=== PATIENT | female | born 1950 | race Caucasian/White ===

== ENCOUNTER 2022-11-20 12:02 | Outpatient (OUT) | payer MEDICARE, OTHER, SELFPAY ==
--- NOTE | 2022-11-20 12:42 | XR_ITS ---
The [place] [id number] Patient Name: Becca YANG MRN: [id number] date: 1950 Sex: F Assigned Patient Location: [facility] Current Patient Location: [facility] Accession/Order Number: [id number] Exam Date: 11/20/2022 12:35 Report Date: 11/20/2022 13:32 At the request of: JAMES LAW Procedure: XR hip LT 2V w/ pelvis PROCEDURE: XR hip LT 2V w/ pelvis HISTORY: R10.32 ; left groin pain since twisting injury 5 weeks ago COMPARISON: None. FINDINGS: BONES:Marked narrowing of the left hip joint space with near [id number] contact. Mild subchondral sclerosis and small subchondral cysts involving the roof the acetabulum. SOFT TISSUES:No visible soft tissue swelling. EFFUSION:None visible. OTHER: Degenerative changes of lower lumbar spine. IMPRESSION: 1. No appreciable acute abnormality. 2. Marked degenerative joint disease of left hip. Electronically authenticated by: HOME AMARAL Date: 11/20/2022 13:32
== END 2022-11-20 12:03 ==
LOC: RAD 12:03
PROVIDERS: PCP Family Medicine; Visit Provider Family Medicine
DX: R10.32 Left lower quadrant pain (principal); M16.12 Unilateral primary osteoarthritis, left hip
CPT/HCPCS: 73502

== ENCOUNTER 2022-12-12 12:45 | Emergency (ER) | payer MEDICARE, OTHER, SELFPAY ==
[2022-12-12 12:53] VITALS: BP 127/72; PULSE 91; RESP 18; TEMP 36.4; O2SAT 98; BMI 22.3
--- NOTE | 2022-12-12 13:27 | US_ITS ---
The [address] [address] Patient Name: Becca YANG MRN: [id number] date: 1950 Sex: F Assigned Patient Location: ED.MAIN Current Patient Location: ER Accession/Order Number: [id number] Exam Date: 12/12/2022 13:30 Report Date: 12/12/2022 14:26 At the request of: ROGER MCINTOSH Procedure: US venous doppler LE LT EXAMINATION: US venous doppler LE LT HISTORY: dvt ; left groin pain COMPARISON: No relevant comparison available. FINDINGS: REGION: Left lower extremity THROMBI: None. COMPRESSIBILITY: Normal compressibility. FLOW: Normal waveform and antegrade flow between 5 and 20 cm/s. OTHER: None. US/US venous doppler LE LT IMPRESSION: 1. No deep vein thrombus within the left lower extremity. Electronically authenticated by: HOME AMARAL Date: 12/12/2022 14:26
--- NOTE | 2022-12-12 13:31 | ED.EXTPRO1 ---
HPI - Extremity Problem General Chief complaint: Extremity Problem, Nontraumatic Stated complaint: PAIN IN/BEHIND L KNEE Time Seen by Provider: 12/12/22 12:50 Source: patient Mode of arrival: walk-in Limitations: no limitations History of Present Illness HPI Narrative: Patient is a 72-year-old female who presents to the emergency department for the evaluation of pain in the left groin radiating to the left knee. Patient states she twisted her leg several weeks ago. She saw her PCP earlier this week ordered x-rays and she was diagnosed with degenerative arthritic changes. She states she was given Percocet and a Medrol Dosepak. She is out of the pain medication, she has two days left of the Medrol Dosepak. She has an appointment with orthopedics on Friday but presents to the Emergency Room for pain control until that time. She denies any new injuries or traumas to the left hip or groin. She states she does believe that her left leg is swollen. No redness or drainage. Related Data Previous Rx's Medication Instructions Recorded methocarbamol 750 mg tablet 750 mg PO TID PRN pain #20 tabs 12/12/22 oxycodone-acetaminophen 5 mg-325 1 tab PO Q6H PRN pain #12 tabs 12/12/22 mg tablet (Percocet) Allergies Allergy/AdvReac Type Severity Reaction Status Date / Time acetaminophen [From Vicodin] Allergy Intermediate Verified 12/12/22 13:46 doxycycline Allergy Intermediate Verified 12/12/22 13:46 hydrocodone [From Vicodin] Allergy Intermediate Verified 12/12/22 13:46 Review of Systems ROS Constitutional Denies: fever or chills Ears, nose, mouth, and throat Denies: throat pain Cardiovascular Denies: chest pain Respiratory Denies: shortness of breath or cough Gastrointestinal Denies: abdominal pain, nausea or vomiting Musculoskeletal Reports: back pain; Denies: neck pain Integumentary/Breast Denies: rash Neurological Denies: headache, numbness in extremities or weakness in extremities Endocrine Denies: excessive urination Exam Narrative Exam Narrative: Gen.: Awake, alert, in no distress Head: Normocephalic, atraumatic ENT: Moist mucous membranes Respiratory: No respiratory distress Extremities: Moves extremities equally, varicose veins noted of the lower extremities, no appreciable swelling of the left leg compared to the right. No areas of wounds or cellulitis. Diffuse tenderness of the left groin, normal hip flexion and knee flexion of the left leg. 2+ DP pulses bilaterally. Psych: Normal mood and affect Neuro: No focal neuro deficit Skin: Warm, dry, intact Constitutional Vital Signs, click to edit/add: Last Vital Signs Temp 97.6 F 12/12/22 12:53 Pulse 91 H 12/12/22 12:53 Resp 18 12/12/22 12:53 BP 127/72 H 12/12/22 12:53 Pulse Ox 98 12/12/22 12:53 O2 Del Method Room Air 12/12/22 12:53 Course Vital Signs Vital signs: Vital Signs Temperature 97.6 F 12/12/22 12:53 Pulse Rate 91 H 12/12/22 12:53 Respiratory Rate 18 12/12/22 12:53 Blood Pressure 127/72 H 12/12/22 12:53 Pulse Oximetry 98 12/12/22 12:53 Oxygen Delivery Method Room Air 12/12/22 12:53 Temperature 97.6 F 12/12/22 12:53 Pulse Rate 91 H 12/12/22 12:53 Respiratory Rate 18 12/12/22 12:53 Blood Pressure 127/72 H 12/12/22 12:53 Pulse Oximetry 98 12/12/22 12:53 Oxygen Delivery Method Room Air 12/12/22 12:53 MDM - Extremity (Nontraumatic) MDM Narrative Medical decision making narrative: ultrasound with no evidence of deep vein thrombosis to the left lower extremity. Patient will be given a short course of analgesics and muscle relaxants until she sees orthopedics. She was made aware of the limitations of the emergency Department for refilling narcotic medications and she verbalizes understanding. Return to the Emergency Room flu symptoms change or worsen. Discharge Plan Discharge Chief Complaint: Extremity Problem, Nontraumatic Clinical Impression: Left groin pain Patient Disposition: Home, Self-Care Time of Disposition Decision: 14:35 Condition: Good Prescriptions / Home Meds: New oxycodone-acetaminophen [Percocet] 5-325 mg tablet 1 tab PO Q6H PRN (Reason: pain) Qty: 12 0RF Rx Instructions: DX: M25.552 methocarbamol 750 mg tablet 750 mg PO TID PRN (Reason: pain) Qty: 20 0RF Instructions: Groin Pain (ED) Stand Alone Forms: Portal Instructions Referrals: JAMES LAW DO [Primary Care Provider] - 1 week
[2022-12-12] MEDS: METHOCARBAMOL 500 MG TABLET 750 MG PO (13:46)
[2022-12-12 14:50] VITALS: BP 137/78; PULSE 78; RESP 16; O2SAT 97
== END 2022-12-12 14:51 | disposition home or self-care (01) ==
PROVIDERS: Emergency Provider Emergency Medicine; PCP Family Medicine
DX: R10.32 Left lower quadrant pain (principal)
CPT/HCPCS: 93971; 99283

== ENCOUNTER 2023-04-02 11:54 | Outpatient (OUT) | payer MEDICARE, OTHER, SELFPAY ==
[2023-04-02 12:24] LABS: Hemoglobin 10.8 g/dL (12.0-16.0); Mean Corpuscular HGB Conc 31.8 g/dL (29.9-35.2); Mean Corpuscular Hemoglobin 29.8 pg (26.7-34.0); Mean Corpuscular Volume 93.7 fL (81.0-99.0); Platelet Count 144 10^3/uL (150-450); Red Blood Count 3.63 10^6/uL (4.20-5.40); Red Cell Distribution Width 13.9 % (11.0-15.0); White Blood Count 4.2 10^3/uL (4.0-11.0)
[2023-04-02 13:05] LABS: Basophils Abs Manual 0.04 10^3/uL (0.00-0.10); Eosinophils Absolute Manual 0.21 10^3/uL (0.00-0.70); Lymphocytes Absolute Manual 2.94 10^3/uL (1.20-3.80); Monocytes Absolute Manual 0.37 10^3/uL (0.30-0.80); Segmented Neut Absolute Manual 0.63 10^3/uL (1.4-6.5)
[2023-04-02 13:23] LABS: Anion Gap 8.8; Aspartate Amino Transferase 25 U/L (15-37); BUN Creatinine Ratio 12.9; Bilirubin Total 0.8 mg/dL (0.2-1.0); Calcium 9.3 mg/dL (8.5-10.1); Carbon Dioxide 30.6 mmol/L (21.0-32.0); Chloride 99 mmol/L (98-107); Estimated GFR (African America >60 (>=60); Estimated GFR (Non-African Ame 54 (>=60); Glucose 74 mg/dL (74-106); Potassium 3.4 mmol/L (3.5-5.1); Sodium 135 mmol/L (136-145)
[2023-04-02 13:24] LABS: Alanine Aminotransferase 20 U/L (14-59); Albumin Globulin Ratio 1.1; Alkaline Phosphatase 67 U/L (46-116); Chol HDL Ratio 2.9; Cholesterol 176 mg/dL (<=200); Free T3 2.51 pg/mL (2.18-3.98); Globulin 3.6 g/dL; HDL Cholesterol 60 mg/dL (40-60); Thyroid Stimulating Hormone 4.212 uIU/mL (0.358-3.740); Total Protein 7.6 g/dL (6.4-8.2); Triglycerides 106 mg/dL (<=150); VLDL CHOLESTEROL 21.2 mg/dL
[2023-04-02 15:57] LABS: Free T4 0.98 ng/dL (0.76-1.46)
== END 2023-04-02 11:55 | disposition home or self-care (01) ==
LOC: LAB 11:56
PROVIDERS: PCP Family Medicine; Visit Provider Family Medicine
DX: E78.00 Pure hypercholesterolemia, unspecified (principal); E03.9 Hypothyroidism, unspecified; R53.82 Chronic fatigue, unspecified; E55.9 Vitamin D deficiency, unspecified
CPT/HCPCS: 36415; 80053; 80061; 82306; 82607; 82746; 84439; 84443; 84481; 85027

== ENCOUNTER 2023-04-11 12:56 | Outpatient (RCR) | payer MEDICARE, OTHER, SELFPAY | END 2023-04-23 11:45 | disposition home or self-care (01) | LOC: PT 12:56 | PROVIDERS: PCP Family Medicine; Visit Provider Family Medicine | DX: M16.12 Unilateral primary osteoarthritis, left hip (principal); Z96.652 Presence of left artificial knee joint | CPT/HCPCS: 97110; 97161 ==

== ENCOUNTER 2023-06-23 14:24 | Outpatient (OUT) | payer MEDICARE, OTHER, SELFPAY ==
--- OUTSIDE RECORDS SUMMARY | 2023-06-23 14:26 | XMS_ITS | CCD ---
Author Name Unknown Address [facility] [address] [place] [address] Organization [facility] Care Team Providers Care University Lecturer Name Role Phone DR SAMUEL LAW Admitting Unavailable THANH, DR SAMUEL Hernandez Attending Unavailable ROBERTH, DR RIZVI Primary Care Unavailable [place], DR Witt Consulting Unavailable THANH, DR SAMUEL Hernandez Consulting Unavailable MD Telly Monsalve Attending Provider DO Samuel Law Primary Care Provider [phone] Samuel Law Primary Care Unavailable Telly Monsalve Attending Unavailable Telly Monsalve Admitting Unavailable Problems Problem Classification Problem Date Documented Date Episodic/Chronic Other non-epithelial cancer of skin (1 source) 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, including hip; Translations: [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, including hip] Onset: 09-16-2022 Episodic Unclassified (1 source) Other complications of procedures, not elsewhere classified, initial encounter; Translations: [Other complications of procedures, not elsewhere classified, initial encounter] Onset: 09-16-2022 Results Test Name Value Interpretation Reference Range Facil ity MG MAMM SCREEN 3D LULA CADon 05-30-2022 MG MAMM SCREEN 3D LULA CAD Patient: Becca YANG Exam Date: 05/30/2022 : 1950 Gender:F Ordering : DR SAMUEL LAW D.OZaki Admission #: [id number] Family : Order #: [id number] CLICK HERE TO VIEW EXAM RADIOLOGY REPORT PROCEDURE: MAMMOGRAM SCREENING 3D BILATERAL CAD COMPARISON: MG MAMM LULA SCRN W CAD DIG, 04/05/2014. MG MAMM SCREEN LULA W CAD, 03/18/2019. INDICATIONS: Screening mammography Calculator Name NCI Breast Cancer Risk Assessment Tool 5 Year Breast Cancer Risk 2.40% Lifetime Breast Cancer Risk 5.90% Personal Breast Cancer No Personal Ovarian Cancer No Treatments None Family Cancers None LOCATION: [facility] BREAST COMPOSITION: Extremely dense, which lowers the sensitivity of mammography. FINDINGS: DIAGNOSTIC CATEGORY 1--NEGATIVE. NO CHANGE FROM COMPARISON ASSESSMENT. Scattered benign-appearing calcifications are present. RIGHT BREAST: No significant suspicious finding. LEFT BREAST: No significant suspicious finding. RECOMMENDATIONS: ROUTINE MAMMOGRAM AND CLINICAL EVALUATION IN 12 MONTHS. PLEASE NOTE: A NORMAL MAMMOGRAM DOES NOT EXCLUDE THE POSSIBILITY OF BREAST CANCER. A CLINICALLY SUSPICIOUS PALPABLE LUMP SHOULD BE BIOPSIED. Dictated by: Eduar Alcantar MD on 05/30/2022 at 15:48 Approved by: Eduar Alcantar MD on 05/30/2022 at 15:51 Normal [facility] Vital Signs Date Time Vital Sign Value Performing Clinician Pepito vidal 08-23-2022 14:10-0400 Body temperature 98.4 [degF] DO Samuel Law Work Phone: [facility] 08-23-2022 14:10-0400 Diastolic blood pressure 66 mm[Hg] DO Samuel Law Work Phone: [facility] 08-23-2022 14:10-0400 Heart rate 85 /min DO Samuel Law Work Phone: [facility] 08-23-2022 14:10-0400 Respiratory rate 18 /min DO Samuel Law Work Phone: [facility] 08-23-2022 14:10-0400 SaO2% (BldA) [Mass fraction] 96 % DO Samuel Law Work Phone: [facility] 08-23-2022 14:10-0400 Systolic blood pressure 118 mm[Hg] DO Samuel Law Work Phone: [facility] Encounters Encounter Date Encounter Type Care Provider Facility Start: 09-16-2022 End: 09-16-2022 ambulatory Samuel A Law Facility:[facility] Start: 09-16-2022 End: 09-16-2022 ambulatory DO Samuel A Law Work Phone: [facility] Work Phone: Start: 09-16-2022 End: 09-16-2022 Discharged Recurring DO Samuel Law Work Phone: [facility] Work Phone: Start: 05-30-2022 End: 05-31-[address] SAMUEL LAW Facility: Payers Date Payer Category Payer Self-pay 2022 Unknown [id number] 1960 Medicare [id number] 1960 Unknown [id number] 1950 Unknown [id number] Unknown [id number] Social History Date Type Detail Facility Tobacco smoking stat [facility] Unknown if ever smoked [facility] Work Phone: Start: 1950 Sex Assigned At Female F [facility] Evaluation note Note Date & Type Note Facility Evaluation note No assessment information availa ble [facility] Work Phone: Summary Purpose Family History No Family History Records FoundNo Family History Records Found Advance Directives No Advanced Directives Records FoundNo Advanced Directives Records Found Chief Complaint and Reason for Visit Chief Complaint S91.301 Additional Source Comments INFORMATION SOURCE (unrecogn ized section and content) DATE CREATED AUTHOR 05/31/2022 [facility] DATE CREATED AUTHOR AUTHOR'S ORGANIZ ATION 10/08/2022 [facility] Care Teams (unrecognized sec tion and content) Team Status: Active Member Role Status Dates Samuel Law DO Primary Care Provider Active Team Status: Inactive Member Role Status Dates Telly Monsalve MD Attending Provider Active Samuel Law DO Primary Care Provider Active Goals (unrecognized section and content) Goals may be documented in a n alternate section FOR RECORDS PERTAINING TO PATIENTS WHO ARE OR HAVE BEEN ENROLLED IN A CHEMICAL DEPENDENCY/SUBSTANCEABUSE PROGRAM, SOME INFORMATION MAY BE OMITTED. This clinical summary was aggregated from multiple sources. Caution should be exercised in using it in the provision of clinical care. This summary normalizes information from multiple sources, and as a consequence, information in this document may materially change the coding, format and clinical context of patient data. In addition, data may be omitted in some cases. CLINICAL DECISIONS SHOULD BE BASED ON THE PRIMARY CLINICAL RECORDS. The [facility]. provides no warranty or guarantee of the accuracy or completeness of information in this document.
--- NOTE | 2023-06-23 14:28 | MR_ITS ---
[address] [address] Patient Name: Becca YANG MRN: [id number] date: 1950 Sex: F Assigned Patient Location: MAMMO Current Patient Location: MRI Accession/Order Number: [id number] Exam Date: 06/23/2023 14:55 Report Date: 06/23/2023 22:58 At the request of: JAMES LAW Procedure: MR lumbar spine wo con EXAMINATION: MR lumbar spine wo con HISTORY: Low Back PAin M54.50 left leg pain, weakness. COMPARISON: None. TECHNIQUE: Multiplanar, multisequence MRI images of the lumbar spine without contrast. FINDINGS: There is grade 1 anterolisthesis at L5-S1 measuring 3 mm. Remaining vertebral bodies are anatomically aligned. Chronic compression at L1 and L5. Scattered moderate disc space narrowing. Conus medullaris terminates at L1. No abnormal signal in the distal spinal cord and conus. L5-S1: Broad-based disc protrusion. Severe bilateral facet arthropathy, ligamentum flavum flavum hypertrophy, and small synovial cyst extending into the bilateral neural foramen. Mild spinal canal and bilateral lateral recess stenosis. Mild right and moderate to severe left foraminal stenosis. L4-L5: Broad-based disc protrusion, moderate facet arthropathy and ligamentum flavum hypertrophy. Prominent bilateral foraminal osteophytes. Mild spinal canal and bilateral lateral recess stenosis. Moderate right and moderate to severe left foraminal stenosis. L3-L4: Disc bulge, moderate facet arthropathy and ligamentum flavum hypertrophy. No significant central spinal canal stenosis. Mild to moderate right foraminal stenosis. L2-L3: Disc bulge, moderate facet arthropathy and ligamentum flavum flavum hypertrophy. Mild central spinal canal stenosis. Asymmetric severe right foraminal stenosis. L1-L2: Disc bulge, moderate facet arthropathy, ligamentum flavum hypertrophy. Mild to moderate spinal canal stenosis. Mild bilateral foraminal stenosis. T12-L1: Disc bulge. No significant spinal canal or significant neural foraminal stenosis. MR/MR lumbar spine wo con IMPRESSION: 1. Moderate multilevel degenerative disc disease and facet joint arthropathy in the lumbar spine. There is degenerative grade 1 anterolisthesis at L5-S1 secondary to facet arthropathy. 2. There is mild to moderate chronic compression deformity of the L1 and L5 vertebral bodies. No acute compression fractures. 3. There are no levels of high-grade central spinal canal stenosis in the lumbar spine. Degenerative changes result in multiple levels of significant foraminal stenosis as described. Electronically authenticated by: BOGDAN STEIN Date: 06/23/2023 22:58
--- NOTE | 2023-06-23 14:28 | XR_ITS ---
The [address] [address] Patient Name: Becca YANG MRN: [id number] date: 1950 Sex: F Assigned Patient Location: MRI Current Patient Location: MRI Accession/Order Number: [id number] Exam Date: 06/23/2023 14:52 Report Date: 06/23/2023 15:28 At the request of: JAMES LAW Procedure: XR hip LT min 2V PROCEDURE: XR hip LT min 2V COMPARISON: 11/20/2022 HISTORY: Left Hip Pain M25.552, Sciatica M54.32 FINDINGS: BONES:Interval left total hip arthroplasty in anatomic alignment. No acute fracture, dislocation or mechanical failure. SOFT TISSUES:Negative. No visible soft tissue swelling. EFFUSION:None visible. OTHER: Negative. XR/XR hip LT min 2V IMPRESSION: No acute radiographic abnormality Electronically authenticated by: CARINA BARRAZA Date: 06/23/2023 15:28
== END 2023-06-23 14:25 | disposition home or self-care (01) ==
LOC: MRI 14:24
PROVIDERS: PCP Family Medicine; Visit Provider Family Medicine
DX: M54.32 Sciatica, left side (principal); M25.552 Pain in left hip; M54.50 Low back pain, unspecified; M51.36 Other intervertebral disc degeneration, lumbar region
CPT/HCPCS: 72148; 73502

== ENCOUNTER 2023-06-30 10:49 | Outpatient (OUT) | payer MEDICARE, OTHER, SELFPAY ==
--- OUTSIDE RECORDS SUMMARY | 2023-06-30 10:51 | XMS_ITS | CCD ---
Author Name Unknown Address [id number] [address] [place] [address] Organization [facility] Care Team Providers Care Linen Room Custodian Name Role Phone DR SAMUEL LAW Admitting Unavailable THANH, DR SAMUEL Hernandez Attending Unavailable ROBERTH, DR RIZVI Primary Care Unavailable [place], DR Witt Consulting Unavailable THANH, DR SAMUEL Hernandez Consulting Unavailable MD Telly Monsalve Attending Provider DO Samuel Law Primary Care Provider Samuel Law Primary Care Unavailable Telly Monsalve [...] : DR SAMUEL LAW D.OZaki Admission #: [id number] Family : Order #: [id number] CLICK HERE TO VIEW EXAM RADIOLOGY REPORT [...] Treatments None Family Cancers None LOCATION: [facility] BREAST COMPOSITION: Extremely dense, which lowers [...] MD on 05/30/2022 at 15:51 Normal [facility] Vital Signs Date Time Vital Sign Value Performing Clinician Pepito vidal 08-23-2022 14:10-0400 Body temperature 98.4 [degF] DO Samuel Law Work Phone: [facility] 08-23-2022 14:10-0400 Diastolic blood pressure 66 mm[Hg] DO Samuel Law Work Phone: [facility] 08-23-2022 14:10-0400 Heart rate 85 /min DO Samuel Law Work Phone: [facility] 08-23-2022 14:10-0400 Respiratory rate 18 /min DO Samuel Law Work Phone: [facility] 08-23-2022 14:10-0400 SaO2% (BldA) [Mass fraction] 96 % DO Samuel Law Work Phone: [facility] 08-23-2022 14:10-0400 Systolic blood pressure 118 mm[Hg] DO Samuel Law Work Phone: [facility] Encounters Encounter Date Encounter Type Care Provider Facility Start: 09-16-2022 End: 09-16-2022 ambulatory Samuel A Law Facility:[facility] Start: 09-16-2022 End: 09-16-2022 ambulatory DO Samuel A Law Work Phone: [facility] Work Phone: Start: 09-16-2022 End: 09-16-2022 Discharged Recurring DO Samuel Law Work Phone: [facility] Work Phone: Start: 05-30-2022 End: 05-31-[address] SAMUEL LAW Facility: Payers Date Payer Category Payer Self-pay 2022 Unknown [id number] 1960 Medicare [id number] 1960 Unknown [id number] 1950 Unknown [id number] Unknown [id number] Social History Date Type Detail Facility Tobacco smoking stat [facility] Unknown if ever smoked [facility] Work Phone: Start: 1950 Sex Assigned At Female F [facility] Evaluation note Note Date & Type Note Facility Evaluation note No assessment information availa ble [facility] Work Phone: Summary Purpose Family History No Family History Records FoundNo Family History Records Found Advance Directives No Advanced Directives Records FoundNo Advanced Directives Records Found Chief Complaint and Reason for Visit Chief Complaint S91.301 Additional Source Comments INFORMATION SOURCE (unrecogn ized section and content) DATE CREATED AUTHOR 05/31/2022 [facility] DATE CREATED AUTHOR AUTHOR'S ORGANIZ ATION 10/08/2022 [facility] Care Teams (unrecognized sec tion and [...] BE BASED ON THE PRIMARY CLINICAL RECORDS. [facility]. provides no warranty or guarantee of the accuracy or completeness of information in this document.
--- NOTE | 2023-06-30 10:54 | MM_ITS ---
Patient Name: Becca YANG MR#: [id number] : 1950 Exam Date: 06/30/2023 Ordering Doctor: DR JAMES LAW D.O. RADIOLOGY REPORT PROCEDURE: MM TOMOSYNTHESIS SCREENING BI COMPARISON: MG MAMM SCREEN LULA W CAD, 03/18/2019. MG MAMM SCREEN 3D LULA CAD, 05/30/2022. INDICATIONS: screening Calculator Name NCI Breast Cancer Risk Assessment Tool 5 Year Breast Cancer Risk 2.40% Lifetime Breast Cancer Risk 5.60% Personal Breast Cancer No Personal Ovarian Cancer No Treatments None Family Cancers None LOCATION: [facility] BREAST COMPOSITION: Extremely dense, which lowers the sensitivity of mammography. FINDINGS: DIAGNOSTIC CATEGORY 1--NEGATIVE. NO CHANGE FROM COMPARISON ASSESSMENT. Scattered benign-appearing calcifications are present. RIGHT BREAST: No significant suspicious finding. LEFT BREAST: No significant suspicious finding. RECOMMENDATIONS: ROUTINE MAMMOGRAM AND CLINICAL EVALUATION IN 12 MONTHS. PLEASE NOTE: A NORMAL MAMMOGRAM DOES NOT EXCLUDE THE POSSIBILITY OF BREAST CANCER. A CLINICALLY SUSPICIOUS PALPABLE LUMP SHOULD BE BIOPSIED. Dictated by: Eduar Alcantar MD on 06/30/2023 at 12:59 Approved by: Eduar Alcantar MD on 06/30/2023 at 13:00
== END 2023-06-30 10:50 | disposition home or self-care (01) ==
LOC: MAMMO 10:49
PROVIDERS: PCP Family Medicine; Visit Provider Family Medicine
DX: Z12.31 Encounter for screening mammogram for malignant neoplasm of breast (principal)
CPT/HCPCS: 77063; 77067

== ENCOUNTER 2023-07-04 10:56 | Outpatient (OUT) | payer MEDICARE, OTHER, SELFPAY ==
--- NOTE | 2023-07-04 10:58 | XR_ITS ---
The [address] [address] Patient Name: Becca YANG MRN: [id number] date: 1950 Sex: F Assigned Patient Location: [facility] Current Patient Location: [facility] Accession/Order Number: [id number] Exam Date: 07/04/2023 11:12 Report Date: 07/04/2023 11:50 At the request of: JAMES LAW Procedure: XR DEXA axial skeleton EXAMINATION: XR DEXA axial skeleton HISTORY: asymptomatic menopausal state COMPARISON: No relevant comparison available. TECHNIQUE: Dual-energy X-ray absorptiometry (DXA) was performed. FINDINGS: SPINE ANALYSIS: Average bone mineral density is 1.150 g/cm2. T-score (standard deviation relative to young adult mean): -0.2 . HIP ANALYSIS: Lowest bone mineral density is within the right femoral neck, 0.876 g/cm2. T-score (standard deviation relative to young adult mean): -1.2 . XR/XR DEXA axial skeleton IMPRESSION: World [employer] Organization Classification: Osteopenia - Moderate Fracture Risk Electronically authenticated by: HOME AMARAL Date: 07/04/2023 11:50
== END 2023-07-04 10:57 | disposition home or self-care (01) ==
LOC: RAD 10:56
PROVIDERS: PCP Family Medicine; Visit Provider Family Medicine
DX: M85.80 Other specified disorders of bone density and structure, unspecified site (principal); Z78.0 Asymptomatic menopausal state
CPT/HCPCS: 77080

== ENCOUNTER 2023-07-21 10:46 | Outpatient (OUT) | payer MEDICARE, OTHER, SELFPAY ==
--- OUTSIDE RECORDS SUMMARY | 2023-07-21 10:53 | XMS_ITS | CCD ---
Author Name Unknown Address [facility] [address] [place] [address] Organization [facility] Care Team Providers Care Will Call Order Clerk Name Role Phone DR SAMUEL LAW Admitting Unavailable THANH, DR SAMUEL Hernandez Attending Unavailable ROBERTH, DR RIZVI Primary Care Unavailable Knox, DR Witt Consulting Unavailable THANH, DR SAMUEL [...] : DR SAMUEL LAW D.OZaki Admission #: [id number] Family : Order #: [id number] CLICK HERE TO VIEW EXAM RADIOLOGY REPORT [...] Treatments None Family Cancers None LOCATION: [facility] BREAST COMPOSITION: Extremely dense, which lowers the [...] MD on 05/30/2022 at 15:51 Normal [facility] Vital Signs Date Time Vital Sign Value Performing Clinician Pepito vidal 08-23-2022 14:10-0400 Body temperature 98.4 [degF] DO Samuel Law Work Phone: [facility] 08-23-2022 14:10-0400 Diastolic blood pressure 66 mm[Hg] DO Samuel Law Work Phone: [facility] 08-23-2022 14:10-0400 Heart rate 85 /min DO Samuel Law Work Phone: [facility] 08-23-2022 14:10-0400 Respiratory rate 18 /min DO Samuel Law Work Phone: [facility] 08-23-2022 14:10-0400 SaO2% (BldA) [Mass fraction] 96 % DO Samuel Law Work Phone: [facility] 08-23-2022 14:10-0400 Systolic blood pressure 118 mm[Hg] DO Samuel Law Work Phone: [facility] Encounters Encounter Date Encounter Type Care Provider Facility Start: 09-16-2022 End: 09-16-2022 ambulatory Samuel A Law Facility:[facility] Start: 09-16-2022 End: 09-16-2022 ambulatory DO Samuel A Law Work Phone: [facility] Work Phone: Start: 09-16-2022 End: 09-16-2022 Discharged Recurring DO Samuel Law Work Phone: [facility] Work Phone: Start: 05-30-2022 End: 05-31-[address] SAMUEL LAW Facility: Payers Date Payer Category Payer Self-pay 2022 Unknown [id number] 1960 Medicare [id number] 1960 Unknown [id number] 1950 Unknown [id number] Unknown [id number] Social History Date Type Detail Facility Tobacco smoking stat [facility] Unknown if ever smoked [facility] Work Phone: Start: 1950 Sex Assigned At Female F [facility] Evaluation note Note Date & Type Note Facility Evaluation note No assessment information availa ble [facility] Work Phone: Summary Purpose Family History No Family History Records FoundNo Family History Records Found Advance Directives No Advanced Directives Records FoundNo Advanced Directives Records Found Chief Complaint and Reason for Visit Chief Complaint S91.301 Additional Source Comments INFORMATION SOURCE (unrecogn ized section and content) DATE CREATED AUTHOR 05/31/2022 [facility] DATE CREATED AUTHOR AUTHOR'S ORGANIZ ATION 10/08/2022 [facility] Care Teams (unrecognized sec tion and [...] BE BASED ON THE PRIMARY CLINICAL RECORDS. [facility] [facility]. provides no warranty or guarantee of the accuracy or completeness of information in this document.
--- NOTE | 2023-07-21 12:18 | P.CN_ITS ---
Consult Note: HPI Data of Consult Patient: new to practice Consult date: 07/21/23 Requesting Physician: Terry Jordan MD Primary Care Provider: JAMES LAW DO Consult Narrative Reason for consult: left hip pain, low back pain Narrative: 73yof who presents for evaluation. history of left hip replacement. has recently been started on gabapentin and tramadol, which helps alleviate pain. lumbar mri reviewed, which is significant for severe degenerative changes and facet arthropathy in lower lumbar spine. also moderate stenosis at multiple levels. continues to stay active and engage in provider directed home exercises. cc:: CC: Terry Jordan MD Review of Systems ROS Status of ROS 10 or more systems reviewed and unremark able except as noted in history and below Meds Home Medications and Allergies Home Medications Medication Instructions Recorded Confirmed Type methocarbamol 750 mg tablet 750 mg PO TID PRN pain #20 tabs 12/12/22 Rx oxycodone-acetaminophen 5 mg-325 1 tab PO Q6H PRN pain #12 tabs 12/12/22 Rx mg tablet (Percocet) Allergies Allergy/AdvReac Type Severity Reaction Status Date / Time acetaminophen [From Vicodin] Allergy Intermediate Verified 12/12/22 13:46 doxycycline Allergy Intermediate Verified 12/12/22 13:46 hydrocodone [From Vicodin] Allergy Intermediate Verified 12/12/22 13:46 Exam Narrative Exam Narrative: Psych-alert and oriented x 3. Attentive and appropriate, constitutionally normal, displays normal mood and affect per situation.? There are no obvious deficits in memory, reasoning, or intellect.? Skin-no obvious rashes, bruising, erythema noted to the patient's area of pain. Extremities- extremities are warm with minimal edema and palpable pulses. Lumbar-no significant tenderness to palpation noted in the lumbar spine and paraspinal musculature.? Pain is elicited with extension, and lateral rotation of the lumbar spine. Range of motion is slightly diminished with these motions due to pain. Facet loading maneuvers are positive bilaterally and do appear to be concordant with the patient's normal complaints of pain.? Coordination remains intact.? Gait remains non-antalgic. Assessment and Plan Assessment and Plan (1) Lumbar stenosis with neurogenic claudication: (2) Lumbar spondylosis: Plan 73yof who presents for evaluation. failed conservative measures, as noted. imaging reviewed, as noted. discussed that her current regimen of pain medication was appropriate, would continue this as long as effective. also discussed that given the severity of her changes in the lumbar spine, may at some point require interventional modalities for further benefit. she expressed understanding. follow up as needed.
== END 2023-07-21 10:47 | disposition home or self-care (01) ==
LOC: PM 10:48
PROVIDERS: PCP Family Medicine; Visit Provider Anesthesiology
DX: M48.062 Spinal stenosis, lumbar region with neurogenic claudication (principal); M47.816 Spondylosis without myelopathy or radiculopathy, lumbar region
CPT/HCPCS: G0463

== ENCOUNTER 2023-12-02 08:17 | Outpatient (OUT) | payer MEDICARE, OTHER, SELFPAY ==
--- OUTSIDE RECORDS SUMMARY | 2023-12-02 08:27 | XMS_ITS | CCD ---
Author Organization [facility] Care Team Providers Care Paste Up Worker Name Role Phone DR SAMUEL LAW Admitting Unavailable LAW, DR SAMUEL Hernandez Attending Unavailable VALONE, DR RIZVI Primary Care Unavailable [place], DR Witt Consulting Unavailable THANH, DR SAMUEL Hernandez Consulting Unavailable MD Telly Monsalve Attending Provider [phone] DO Samuel Law Primary Care Provider Samuel [...] 1950 Gender:F Ordering : DR SAMUEL LAW DZakiOZaki Admission #: [id number] Family : Order #: [id number] CLICK HERE TO VIEW EXAM RADIOLOGY REPORT [...] No Treatments None Family Cancers None LOCATION: BREAST COMPOSITION: Extremely dense, which lowers the [...] Alcantar MD on 05/30/2022 at 15:51 Normal Vital Signs Date Time Vital Sign Value Performing Clinician Opheliai young 08-23-2022 14:10-0400 Body temperature 98.4 [degF] DO Samuel Law Work Phone: [facility] 08-23-2022 14:10-0400 Diastolic blood pressure 66 mm[Hg] DO Samuel Law Work Phone: [facility] 08-23-2022 14:10-0400 Heart rate 85 /min DO Samuel Law Work Phone: [facility] 08-23-2022 14:10-0400 Respiratory rate 18 /min DO Samuel Law Work Phone: [facility] 08-23-2022 14:10-0400 SaO2% (BldA) [Mass fraction] 96 % DO Samuel Law Work Phone: [facility] 08-23-2022 14:10-0400 Systolic blood pressure 118 mm[Hg] DO Samuel Law Work Phone: [facility] Encounters Encounter Date Encounter Type Care Provider Facility Start: 09-16-2022 End: 09-16-2022 ambulatory Samuel A Law Facility:[facility] Start: 09-16-2022 End: 09-16-2022 ambulatory DO Samuel A Law Work Phone: [facility] Work Phone: Start: 09-16-2022 End: 09-16-2022 Discharged Recurring DO Samuel Law Work Phone: [facility] Work Phone: Start: 05-30-2022 End: 05-31-2022 ambulatory SAMUEL LAW Facility: Payers Date Payer Category Payer Self-pay 2022 Unknown [id number] 1960 Medicare [id number] 1960 Unknown [id number] 1950 Unknown [id number] [id number] Unknown [id number] 2.16.8 [id number] Social History Date Type Detail Facility Tobacco smoking stat [facility] Unknown if ever smoked [facility] Work Phone: Start: 1950 Sex Assigned At Female F [facility] Evaluation note Note Date & Type Note Facility Evaluation note No assessment information availa ble [facility] Work Phone: Summary Purpose Family History No Family History Records FoundNo Family History Records Found Advance Directives No Advanced Directives Records FoundNo Advanced Directives Records Found Chief Complaint and Reason for Visit Chief Complaint S91.301 Additional Source Comments INFORMATION SOURCE (unrecogn ized section and content) DATE CREATED AUTHOR 05/31/2022 [facility] DATE CREATED AUTHOR AUTHOR'S ORGANIZ ATION 10/08/2022 [facility] Care Teams (unrecognized sec tion and content) [...] BE BASED ON THE PRIMARY CLINICAL RECORDS. [facility] [employer] [facility]. provides no warranty or guarantee of the accuracy or completeness of information in this document.
[2023-12-02 08:56] LABS: Hematocrit 35.7 % (36.0-48.0); Hemoglobin 11.8 g/dL (12.0-16.0); Mean Corpuscular HGB Conc 33.1 g/dL (29.9-35.2); Mean Corpuscular Hemoglobin 29.8 pg (26.7-34.0); Mean Corpuscular Volume 90.2 fL (81.0-99.0); Mean Platelet Volume 12.7 fL (9.5-13.5); Platelet Count 105 10^3/uL (150-450); Red Blood Count 3.96 10^6/uL (4.20-5.40); Red Cell Distribution Width 12.8 % (11.0-15.0); White Blood Count 3.9 10^3/uL (4.0-11.0)
[2023-12-02 09:33] LABS: Alanine Aminotransferase 20 U/L (14-59); Albumin Globulin Ratio 1.4; Albumin Level 4.3 g/dL (3.4-5.0); Alkaline Phosphatase 41 U/L (46-116); Anion Gap 14.7; Aspartate Amino Transferase 24 U/L (15-37); BUN Creatinine Ratio 12.7; Bilirubin Total 0.9 mg/dL (0.2-1.0); Carbon Dioxide 28.2 mmol/L (21.0-32.0); Chloride 104 mmol/L (98-107); Chol HDL Ratio 2.8; Cholesterol 180 mg/dL (<=200); Estimated GFR (African America >60 (>=60); Estimated GFR (Non-African Ame 53 (>=60); Free T3 2.15 pg/mL (2.18-3.98); Globulin 3.1 g/dL; Glucose 82 mg/dL (74-106); HDL Cholesterol 64 mg/dL (40-60); Potassium 3.9 mmol/L (3.5-5.1); Sodium 143 mmol/L (136-145); Thyroid Stimulating Hormone 3.423 uIU/mL (0.358-3.740); Total Protein 7.4 g/dL (6.4-8.2); Triglycerides 97 mg/dL (<=150); VLDL CHOLESTEROL 19.4 mg/dL
[2023-12-02 09:50] LABS: Free T4 0.91 ng/dL (0.76-1.46)
[2023-12-02 10:06] LABS: Segmented Neut Absolute Manual 1.05 10^3/uL (1.4-6.5)
[2023-12-02 10:07] LABS: Basophils Abs Manual 0.11 10^3/uL (0.00-0.10); Eosinophils Absolute Manual 0.03 10^3/uL (0.00-0.70); Lymphocytes Absolute Manual 2.26 10^3/uL (1.20-3.80); Monocytes Absolute Manual 0.42 10^3/uL (0.30-0.80)
== END 2023-12-02 08:18 | disposition home or self-care (01) ==
LOC: LAB 08:23
PROVIDERS: PCP Family Medicine; Visit Provider Family Medicine
DX: E78.00 Pure hypercholesterolemia, unspecified (principal); E03.9 Hypothyroidism, unspecified; E55.9 Vitamin D deficiency, unspecified
CPT/HCPCS: 36415; 80053; 80061; 82306; 84439; 84443; 84481; 85007; 85027

== ENCOUNTER 2024-01-14 12:04 | Outpatient (OUT) | payer MEDICARE, OTHER, SELFPAY ==
[2024-01-14 13:23] LABS: Anion Gap 11.2; BUN Creatinine Ratio 15.3; Calcium 9.2 mg/dL (8.5-10.1); Carbon Dioxide 29.8 mmol/L (21.0-32.0); Chloride 103 mmol/L (98-107); Estimated GFR (African America >60 (>=60); Estimated GFR (Non-African Ame 55 (>=60); Glucose 89 mg/dL (74-106); Sodium 140 mmol/L (136-145)
[2024-01-14 14:06] LABS: Basophils Absolute Auto 0.1 10^3/uL (0.0-0.1); Basophils Percent Auto 1.1 % (0.2-2.0); Eosinophils Percent Auto 0.7 % (0.9-7.0); Hematocrit 35.7 % (36.0-48.0); Immature Granulocytes Abs Auto 0.01 10^3/uL (0.00-0.03); Immature Granulocytes Pct Auto 0.2 % (0.0-0.5); Lymphocytes Absolute Auto 2.4 10^3/uL (1.2-3.8); Lymphocytes Percent Auto 53.2 % (20.5-60.0); Mean Corpuscular HGB Conc 33.6 g/dL (29.9-35.2); Mean Corpuscular Hemoglobin 30.1 pg (26.7-34.0); Mean Corpuscular Volume 89.5 fL (81.0-99.0); Mean Platelet Volume 12.9 fL (9.5-13.5); Monocytes Percent Auto 21.5 % (1.7-12.0); Neutrophils Absolute Auto 1.1 10^3/uL (1.4-6.5); Neutrophils Percent Auto 23.3 % (43.0-75.0); Platelet Count 108 10^3/uL (150-450); Red Blood Count 3.99 10^6/uL (4.20-5.40); Red Cell Distribution Width 12.5 % (11.0-15.0); White Blood Count 4.6 10^3/uL (4.0-11.0)
[2024-01-15 12:09] LABS: PTH, Intact 37 pg/mL (15-65)
== END 2024-01-14 12:05 | disposition home or self-care (01) ==
LOC: LAB 12:06
PROVIDERS: PCP Family Medicine; Visit Provider Family Medicine
DX: N18.31 Chronic kidney disease, stage 3a (principal)
CPT/HCPCS: 36415; 80048; 83970; 85025

== ENCOUNTER 2024-05-18 14:04 | Outpatient (RCR) | payer MEDICARE, SELFPAY | END 2024-06-01 11:26 | disposition home or self-care (01) | LOC: PT 14:04 | PROVIDERS: PCP Family Medicine; Visit Provider Family Medicine | DX: R26.89 Other abnormalities of gait and mobility (principal) | CPT/HCPCS: 97110; 97161 ==

== ENCOUNTER 2025-04-01 09:59 | Outpatient (OUT) | payer OTHER, SELFPAY ==
--- OUTSIDE RECORDS SUMMARY | 2023-10-02 09:00 | XMS_ITS ---
Author Organization [facility] in [place] Address [address] [place] [address] Care Team Providers Care State Federal Relations Deputy Director Name Role Phone Samuel Somers Primary Care Provider REASON FOR VISIT -6 Month Follow Up- Encounters Encounter Location Date Provider Diagnosis [facility] [address] [place] [address] 10/02/2023 Samuel Somers Plan Of Treatment Next Appt Details Provider Name:Samuel ibarra, 04/06/2025 03:00:00 PM, [address] [place], [address], Progress Notes * Becca YANG MDOB:1950 (74 yo F)Acc No.[id number]:10/02/2023 UNLOCKED PROGRESS NOTE Established Patient: Janet SeguraBecca TUBBS :?Samuel Somers DODOB:1950???Age:73 Y ???Sex:FemaleDate:10/02/2023hone:[phone]:[address] [place] [id number] Subjective: * Chief Complaints: * 1 . -6 Month Follow Up-. * Medical History: Objective: * Vitals: Assessment: Plan: * Treatment: * * Electronic signature of Samuel Somers DO, [id number] on 04/01/2025 at 10:12 AM EDTSign off status: PendingVisit Status:?R/S (Rescheduled) * Provider: Angelita Somers, DO Date: 0 10/02/2023 Generated for Printing/Faxing/eTransmitting on:?04/01/2025 10:12 AM EDT
--- OUTSIDE RECORDS SUMMARY | 2023-12-08 11:30 | XMS_ITS ---
Author Organization [facility] [place] Address [address] [place] [address] Care Team Providers Care Industrial Tech Instructor Name Role Phone Samuel Somers Primary Care Provider [phone] REASON FOR VISIT follow up Encounters Encounter Location Date Provider Diagnosis [facility] [address] [place] [address] 12/08/2023 Samuel Somers Plan Of Treatment Next Appt Details Provider Name:Samuel ibarra, 04/06/2025 03:00:00 PM, [address] [place], [address], Progress Notes * Becca YANG MDOB:1950 (74 yo F)Acc No.[id number]:12/08/2023 UNLOCKED PROGRESS NOTE Established Patient: Janet EVANSALEXA Becca Hudson :?Samuel Somers DODOB:1950???Age:73 Y ???Sex:FemaleDate:12/08/2023hone:[phone]:[address] [place], [place] [address] Subjective: * Chief Complaints: * 1 . Follow up. * Medical History: Objective: * Vitals: Assessment: Plan: * Treatment: * * Electronic signature of Samuel Somers DO, [id number] on 04/01/2025 at 10:11 AM EDTSign off status: PendingVisit Status:?R/S (Rescheduled) * Provider: Angelita Somers DO Date: 0 12/08/2023 Generated for Printing/Faxing/eTransmitting on:?04/01/2025 10:11 AM EDT
--- OUTSIDE RECORDS SUMMARY | 2025-04-01 10:12 | XMS_ITS | Clinical Summary ---
Author Organization [employer] Address [id number] [address] [place] [address] Care Team Providers Care Internal Recruiter Name Role Phone Unavailable Primary Care Provider Unavailabl e Social History Tobacco UseTypesPacks/DayYears UsedDateSmoking Tobacco: Never AssessedChildcare AnswerDate EjzajdqaMgelbolqjGduybho84/12/2019EmploymentAnswerDate Recorded FtwgbinfrjVvsotsj96/12/2019CommentsUnknownSex and Gender Information ValueDate RecordedSex Assigned at BirthNot on fileLegal HrfDnoeay77/06/2015 11:54 AM EDTGender IdentityNot on fileSexual OrientationNot on file Plan of Treatment Not on file Medical Devices Not on file
--- OUTSIDE RECORDS SUMMARY | 2025-04-01 10:12 | XMS_ITS | Clinical Summary ---
Author Organization [facility] Address [address] [place] [address] Care Team Providers Care Shaker Washer Name Role Phone Unavailable Primary Care Provider Unavailabl e Social History Tobacco UseTypesPacks/DayYears UsedDateSmoking Tobacco: Never Assessed CommentsUnknownSex and Gender InformationValueDate RecordedSex Assigned at Not on fileLegal UdzCpnncs95/15/2023 6:46 PM EDTGender IdentityNot on fileSexual OrientationNot on file Plan of Treatment Not on file
--- OUTSIDE RECORDS SUMMARY | 2025-04-01 10:12 | XMS_ITS | CCD ---
Author Organization [facility] Care Team Providers Care Cyber Defense Forensics Analyst Name Role Phone DR SAMUEL LAW Admitting Unavailable LAW, DR SAMUEL Hernandez Attending Unavailable VALONE, DR RIZVI Primary Care Unavailable [place], DR Witt Consulting Unavailable THANH, DR SAMUEL Hernandez Consulting Unavailable MD Telly Monsalve Attending Provider DO Samuel Law Primary Care Provider [phone] Samuel Law Primary Care Unavailable Telly Monsalve Attending Unavailable Telly Monsalve Admitting Unavailable Problems Problem ClassificationProblemDateDocumented DateEpisodic/ChronicOther non- epithelial cancer of skin (1 source)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, including hip; Translations: [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, including hip]Onset: 11-16-1674NsziqgmxSbocvhtrhzry (1 source)Other complications of procedures, not elsewhere classified, initial encounter; Translations: [Other complications of procedures, not elsewhere classified, initial encounter]Onset: 09-16-2022 Results Test NameValueInterpretationReference RangeFacilityMG MAMM SCREEN 3D LULA CADon 55-01-7429TB MAMM SCREEN 3D LULA CADPatient: MICHELLEALEXA Becca HudsonZaki Exam Date: 05/30/2022 : 1950 Gender:F Ordering : DR SAMUEL LAW D.OZaki Admission #: [id number] Family : Order #: [id number] CLICK HERE TO VIEW EXAM RADIOLOGY REPORT [...] Treatments None Family Cancers None LOCATION: [facility] BREAST COMPOSITION: Extremely dense, which lowers the [...] by: Eduar Alcantar MD on 05/30/2022 at 15:51[facility] Vital Signs Date TimeVital SignValuePerforming JlpvqqzowZicpiydj73-94-6459 14:10-0400Body ticizbsnqsc10.4 [degF]DO Samuel Law Work Phone: [phone] [place], [place] [address]-24-2023 14:10-0400 Diastolic blood wmhbohsy43 mm[Hg]DO Samuel Law Work Phone: [phone] [place], [place] [address]24-2023 14:10-0400 Heart rate85 /minDO Samuel Law Work Phone: [phone] [place], [place] [address]24-[address]23 14:10-0400 Respiratory rate18 /minDO Samuel Law Work Phone: 1([phone])[phone] [place], [place] [address]-24-2023 14:10-0400 SaO2% (BldA) [Mass fraction]96 %DO Samuel Law Work Phone: [phone] [place], [place] [address]24[address]23 14:10-0400 Systolic blood ygrskami949 mm[Hg]DO Samuel Law Work Phone: [phone] [place] [address] Encounters Encounter DateEncounter TypeCare ProviderFacilityStart: 09-16-2022 End: 88-12-5587azwizpofbjGuwxoq A HerringFacility:[facility]art: 09-16-2022 End: 15-64-2733mkqmfliffzMM Samuel A Law Work Phone: [facility] Work Phone: Start: 09-16-2022 End: 67-64-3873Grqhczmesu RecurringDO Samuel Law Work Phone: [facility] Work Phone: Start: 05-30-2022 End: 69-10-1651ubxdjmiyexGK SAMUEL CHAOCATIEFacility:H1 Payers DatePayer CategoryPayerPolicy [id number] [id number] [id number] [id number] Social History DateTypeDetailFacilityTobacco smoking status NHISUnknown [facility] Work Phone: Start: 73-25-3041Njc Assigned At [facility] Evaluation note Note Date & TypeNoteFacilityEvaluation noteNo assessment information available [facility] Work Phone: Summary Purpose Family History No Family History Records FoundNo Family History Records Found Advance Directives No Advanced Directives Records FoundNo Advanced Directives Records Found Chief Complaint and Reason for Visit Chief Complaint S91.301 Additional Source Comments INFORMATION SOURCE (unrecogn ized section and content) DATE CREATED AUTHOR 05/31/[address] [facility] DATE CREATED AUTHOR AUTHOR'S ORGANIZ ATION 10/08/2022 [facility] Care Teams (unrecognized sec tion and content) Team Status: Active Member Role Status Dates Samuel Law DO Primary Care Provider Active Team Status: Inactive Member Role Status Dates Telly Monsalve MD Attending Provider Active Samuel A Law , DOPrimary Care ProviderActive Goals (unrecognized section and content) Goals may [...] BE BASED ON THE PRIMARY CLINICAL RECORDS. [facility] [email or web address] [facility]. provides no warranty or guarantee of the accuracy or completeness of information in this document.
--- OUTSIDE RECORDS SUMMARY | 2025-04-01 10:13 | XMS_ITS | Patient Health Record ---
Author Organization [facility] Address [address] [facility] [address] [place] [address] Care Team Providers Care Fire Prevention Specialist Name Role Phone Chantel Blas Unavailable [phone] Allergies Allergen (clinical drug ingredient) Drug/Non Drug Allergy documented on EMR Reaction Allergy Type Onset Date Status VicodinUnknownDrug AllergyActivedoxycyclineDoxycyclineUnknownDrug AllergyActive Reason For Referral No Information Medications Medication SIG (Take, Route, Frequency, Duration) Notes Start Date End Date Status Pepcid ActiveCalciumActiveMultivitaminActiveLevothyroxine SodiumActiveVoltaren 1 % Gel as directed ExternallyActiveFish OilActiveLipitor 10 MG Tablet1 tablet Orally Once a dayActivetraMADol HCl 50 MG Tablet1 tablet as needed Orally Once a day ActiveGabapentin 100 MG Capsule1 capsule Orally Once a dayActiveFolic AcidActive Social History Tobacco Use: Social History Observation Description Date Details (start date - stop date) Never Smoker NA - NA Sex Assigned At : Social History Observation Description Sex Assigned At Unknown Social History Drugs/Alcohol:Social InfoQuestionAnswerNotesDrugsHave you used drugs other than those for medical reasons in the past 12 months?NoAlcohol ScreenDid you have a drink containing alcohol in the past year?JpdVnmvdo7FnwslzpbyuiynnMyzqctil Tobacco Use:Social InfoQuestionAnswerNotesTobacco Use/SmokingAre you anonsmoker Problems Problem Type SNOMED Code ICD Code Onset Dates Problem Status W/U Status Risk Notes Problem Endometrium thickened (185020301) Thicken ed endometrium (R93.89) ActiveconfirmedProblemStenosis of cervix (12415088)Cervical stenosis (uterine cervix) (N88.2)Activeconfirmed Plan Of Treatment No Information Insurance Providers Payer Name Payer Address Payer Phone Subscriber Number Group Number Insured Name Patient Relationship to Insured Coverage Start Date Coverage End Date Medicare [place] [address] [place], [place] [id number] Hernandez Shi - patient is the insured[address] [id number], M. MicheleSelf - patient is the insured Medical (General) History Medical History History ICD Code hypothyroidism hypoglycemiagilberts syndromescoliosisDJD - lumbarhigh cholesterolmigraineslazy eyeSurgical History Surgery Date(Month/Year) foot surgery, right Hospitalization History Reason Date(Month/Year) broken clavicle 2022
--- OUTSIDE RECORDS SUMMARY | 2025-04-01 10:13 | XMS_ITS | Patient Health Record ---
Author Organization [facility] in [place] Address [address] [place] [address] Care Team Providers Care Sec Accountant Name Role Phone Samuel Somers Primary Care Provider Rosa Fuentes Unavailable [phone] Allergies Allergen (clinical drug ingredient) Drug/Non Drug Allergy documented on EMR Reaction Allergy Type Onset Date Status VicodinhallucinationsDrug AllergyActivedoxycyclineDoxycyclinerashDrug Allergy Active Reason For Referral Reason eval and tx Diagnosis 1 Other abnormalities of gait and mobility (R26.89) Referral Organization [facility] harjinder Referring Provider First Name Samuel Referring Provider Last Name Yonis Referring Provider Speciality [facility] gilbert Referred Provider Specialty Physical The rapist General Notes Samuel Somers 06:40:08 PM >please call pt for appt Referral Priority Routine Reason colonoscopy - screen ing Diagnosis 1 Encounter for screen ing for malignant neoplasm of colon (Z12.11) Referral Organization [facility] harjinder Referring Provider First Name Samuel Referring Provider Last Name Yonis Referring Provider Speciality [facility] gilbert Referred Provider Specialty General Surg moo General Notes Samuel Somers 06:43:33 PM >please call pt for appt Referral Priority Routine Medications Medication SIG (Take, Route, Frequency, Duration) Notes Start Date End Date Status Fish Oil 1200 MG 1 capsule Orally Once a day ActiveFamotidine 40 MGTAKE 1 TABLET BY MOUTH EVERY DAY; Duration: 90ActiveFolic Acid 1 MG1 tablet Orally Once a dayActiveVitamin Y4VvxkktotxhlwSGMD 20 MG3 tablets daily for 3 days then 2 tablets daily for 3 days then 1 tablet daily for 3 days Orally; Duration: 9 days10/04/2024tiveFiberprnActiveSenna SOTCActive Benzonatate 200 MG1 capsule Orally Three times a day prn cough; Duration: 10 days10/04/20242832ArgjhmMupxejqdwqmjQzljrrSirhxfb5213bx dailyActiveOndansetron HCl 4 MG1 tablet Orally daily prn; Duration: 30 days12/15/2023ctiveAspirin 81 MG1 tablet Orally Once a daywill stop ctiveMethocarbamol 500 MGTAKE 1 TABLET BY MOUTH EVERY DAY AT BEDTIME NEEDED; Duration: 30ActiveMiraLax 17 GM/SCOOP1 scoop mixed with 8 ounces of fluid Orally daily prn12/21/2023ctiveFarxiga 10 MG 1 tablet Orally Once a day; Duration: 30 12/15/2023Not-TakinglevoFLOXacin 500 MG1 tablet Orally Once a day; Duration: 7 days10/04/2024tiveLevothyroxine Sodium 88 MCGTAKE 1 TABLET BY MOUTH EVERY DAY IN THE MORNING ON EMPTY STOMACH FOR 90 DAYS; Duration: ActiveAtorvastatin Calcium 10 MGTAKE 1 TABLET BY MOUTH EVERY DAY; Duration: ActiveGabapentin 300 MGTAKE 1 CAPSULE BY MOUTH THREE TIMES A DAY FOR 30 DAYS; Duration: 30ActiveJardiance 10 MG1 tablet Orally Once a day; Duration: 30 12/15/2023Not-TakingAcetaminophen 500 MG1 capsule as needed Orally every 6 hrsPRNActivetraMADol HCl 50 MG2 tablets Orally qid prn; Duration: 30 days03/11/2025tive Immunizations Vaccine Route Administration Date Status Comme nts Flu, Fluad () (29745) 65 yrs+, single-dose syringe IM Intramuscular 04/03/2023 Administered Flu, Fluad (58752) 65 yrs and older, single-dose syringe ([id number])IM Pupusehewieli46/04/2024dministered Social History Tobacco Use: Social History Observation Description Date Details (start date - stop date) Never Smoker NA - NA Tobacco Use/Smoking Question Answer Notes Patient is a nonsmoker Alcohol Screen (Audit-C) Question Answer Notes Did you have a drink containing alcohol in the p ast year? No Edpffo6ZjjbxhsbeayxkfNbcxciih Problems Problem Type SNOMED Code ICD Code Onset Dates Problem Status W/U Status Risk Notes Problem Age-related osteoporosis (135007 002) Age-related osteoporosis without current pathological fracture (M81.0) ActiveconfirmedProblemMigraine with aura (5581085)Migraine with aura, not intractable, without status migrainosus (G43.109)ActiveconfirmedProblemSquamous cell carcinoma of skin of lower extremity (802783526)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, including hip (C44.722)ActiveconfirmedProblemMalignant neoplasm of skin (878087754)Unspecified malignant neoplasm of skin, unspecified (C44.90)ActiveconfirmedProblemAnemia in chronic kidney disease (068936206)Anemia in chronic kidney disease (D63.1)ActiveconfirmedProblemThrombocytopenia (890948371)Thrombocytopenia, unspecified (D69.6)ActiveconfirmedProblemVitamin D deficiency (39630175)Vitamin D deficiency, unspecified (E55.9)Activeconfirmed ProblemLocalized, primary osteoarthritis of the pelvic region and thigh (216165791)Unilateral primary osteoarthritis, left hip (M16.12)Activeconfirmed ProblemIdiopathic scoliosis of lumbar spine (disorder) (714087211)Other idiopathic scoliosis, lumbar region (M41.26)ActiveconfirmedProblemLumbosacral spondylosis without myelopathy (01232501)Spondylosis without myelopathy or radiculopathy, lumbar region (M47.816)ActiveconfirmedProblemDegeneration of lumbar intervertebral disc (25188946)Other intervertebral disc degeneration, lumbar region (M51.36)ActiveconfirmedProblemLeft side sciatica (963338575161706) Sciatica, left side (M54.32)ActiveconfirmedProblemAbnormal gait (97189306)Other abnormalities of gait and mobility (R26.89)ActiveconfirmedProblemChronic fatigue syndrome (disorder) (77966771)Chronic fatigue, unspecified (R53.82)Active confirmedProblemGastroesophageal reflux disease without esophagitis (530478802) Gastroesophageal reflux disease without esophagitis (K21.9)Activeconfirmed ProblemAcquired hypothyroidism (085831866)Acquired hypothyroidism (E03.9)Active confirmedProblemPure hypercholesterolemia (629381904)Pure hypercholesterolemia (E78.00)ActiveconfirmedProblemChronic kidney disease stage 3A (disorder) (796514937)Chronic kidney disease, stage 3a (N18.31)Activeconfirmed Vital Signs Heart Rate 74 /min 10/04/2024 Respiratory Rate16 /min10/04/20244647Byfmkvis00 %10/04/2024lood pressure diastolic 80 mm Hg10/04/20247218Rwhpof63 in10/04/2024lood pressure ixbruopp159 mm Hg 10/04/20246365Jncuwr066 lbs10/04/2024BMI22.67 kg/m210/04/2024 Encounters Encounter Location Date Provider Diagnosis Outside Access [address] [place] [address] 12/03/[address] [facility] [place] [address]/[facility] [address] [place] [address]/01/2025 Samuel HerringSpondylosis without myelopathy or radiculopathy, lumbar region M47.816[facility] [address] [place] [address]/ Samuel HerringSpondylosis without myelopathy or radiculopathy, lumbar region M47.816[facility] [address] [place] [address]/10/2024 [facility] [address] [place] [address] 08/17/2024[facility] [address] [place] [address]/Daniel HerringSpondylosis without myelopathy or radiculopathy, lumbar region M47.816[facility] [address] [place] [address]/11/2024D[facility] [address] [place] [address]/08/2024Heather HaynesSpondylosis without myelopathy or radiculopathy, lumbar region M47.816[facility] [address] [place] [address]/[facility] [facility] [address] [place] [address]/[place] [address] [place] [address]/[facility] [place] [address] [place] [address]/[facility] annual wellness exam Z00.00 ; Encounter for immunization Z23 ; Body mass index [BMI] 23.0-23.9, adult Z68.23 ; Spondylosis without myelopathy or radiculopathy, lumbar region M47.816 ; Pure hypercholesterolemia E78.00 ; Acquired hypothyroidism E03.9 ; Vitamin D deficiency, unspecified E55.9 ; Chronic kidney disease, stage 3a N18.31 ; Thrombocytopenia, unspecified D69.6 ; Anemia in chronic kidney disease D63.1 ; Other abnormalities of gait and mobility R26.89 ; Encounter for screening for malignant neoplasm of colon Z12.11 ; Other specified disorders of bone density and structure, unspecified site M85.80 and Asymptomatic menopausal state Z78.0 [place] [address] [place] [address]/09/2024Daniel HerringChronic kidney disease, stage 3a N18.31 ; Acute bronchitis, unspecified J20.9 ; Pure hypercholesterolemia E78.00 ; Acquired hypothyroidism E03.9 ; Chronic fatigue, unspecified R53.82 ; Body mass index [BMI] 22.0-22.9, adult Z68.22 and Spondylosis without myelopathy or radiculopathy, lumbar region M4 7.816 Assessments Encounter Date Diagnosis (ICD Code) Assessment Notes Treatment Notes Treatment Clinical Notes Section Notes 04/05/2024 Encounter for Medicare annual we llness exam (ICD-10 - Z00.00) rec dtap q10 years flu shot today rec prevnar 20 rec shingrix - she might have had the first one rec rsv vaccine rtc 1 year diet/exercise eye and dental exams yearly no need for pap refer for colonoscopy rec covid vaccine 04/05/2024Encounter for immunization (ICD-10 - Z23)05/05/2025Chronic kidney disease, stage 3a (ICD-10 - N18.31) monitor lab - slip given to do prior to next appt rec farxiga neph if worsens 10/04/2024ute bronchitis, unspecified (ICD-10 - J20.9) cxr if worsens rtc prn 05/20/2024Spondylosis without myelopathy or radiculopathy, lumbar region (ICD-10 - M47.816)09/22/2024Spondylosis without myelopathy or radiculopathy, lumbar region (ICD-10 - M47.816)12/03/2024Spondylosis without myelopathy or radiculopathy, lumbar region (ICD-10 - M47.816)03/10/2025Spondylosis without myelopathy or radiculopathy, lumbar region (ICD-10 - M47.816)10/04/2024Pure hypercholesterolemia (ICD-10 - E78.00) stable labs yearly diet/exercise 04/05/2024ody mass index [BMI] 23.0-23.9, adult (ICD-10 - Z68.23)04/05/2024 Spondylosis without myelopathy or radiculopathy, lumbar region (ICD-10 - M47.816) refer for PT for balance fall precautions oarrs ok 5Acquired hypothyroidism (ICD-10 - E03.9)labs - change tx if needed 10/04/2024hronic fatigue, unspecified (ICD-10 - R53.82)labs - tx if abnormal 4Pure hypercholesterolemia (ICD-10 - E78.00) diet/exercise monitor labs controlled 4Acquired hypothyroidism (ICD-10 - E03.9) labs yearly stable no change as pt feeling well 10/04/2024ody mass index [BMI] 22.0-22.9, adult (ICD-10 - Z68.22)10/04/2024 Spondylosis without myelopathy or radiculopathy, lumbar region (ICD-10 - M47.816) exercise PT if worsens oarrs ok 04/05/2024Vitamin D deficiency, unspecified (ICD-10 - E55.9) continue otc vit D monitor lab 04/05/2024hronic kidney disease, stage 3a (ICD-10 - N18.31) monitor unable to take SGLT2 due to cost neph if worsens 04/05/2024Thrombocytopenia, unspecified (ICD-10 - D69.6) monitor heme if worsens 04/05/2024nemia in chronic kidney disease (ICD-10 - D63.1) stable monitor lab yearly 04/05/2024Other abnormalities of gait and mobility (ICD-10 - R26.89) fall precautions refer for PT 04/05/2024Encounter for screening for malignant neoplasm of colon (ICD-10 - Z12.11)refer for colonoscopy to dr [place]/04/2024Other specified disorders of bone density and structure, unspecified site (ICD-10 - M85.80)04/05/2024symptomatic menopausal state (ICD-10 - Z78.0) ca + d exercise d/w pt fosamax - will hold off dexa q2 years Plan Of Treatment Pending Test Test Name Order Date CMP (COMPLETE METABOLIC PANEL) 3 LIPID PANEL (CHOL/TRIG/HDL/LDL) 10/05/19 25 LIPID PANEL (CHOL/TRIG/HDL/LDL) 11/14/19 23 CBC WITH DIFF 11/13/2022 T3 FREE (T3FR) 11/13/2022 T3 FREE (T3FR) 10/04/2024 T4 FREE (T4FR) 10/04/2024 TSH 10/04/2024 XR Pelvis (1-2 views) * 11/13/2022 CRYOTHERAPY - performed 08/04/2023 VITAMIN B12 LEVEL AND FOLATE (FOLIC ACID ) 10/04/2024 MICROALBUMIN w FACILITIES MAINTENANCE TECHNICIAN RATIO 10/04/2024 CMP (COMP MET WEAVER) w/eGFR CKD-EPI 2024 CBC WITH DIFF 10/04/2024 Next Appt Details Provider Name:Samuel ibarra, 04/06/2025 03:00:00 PM, [address] [place], [address], Insurance Providers Payer Name Payer Address Payer Phone Subscriber Number Group Number Insured Name Patient Relationship to Insured Coverage Start Date Coverage End Date [employer] [address] [place], [place] [id number] Texricky, Moraima - patient is the [id number] 2024 Medical (General) History Medical History History ICD Code hypothyroidism gilberts syndromeactinic keratosis(leg)scoliosisDJD-lumbarbasilar migraineslazy eye LcovidhyperlipidemiaIBSSCC - R foot s/p surgeryL hip OAR side collarbone fracturethrombocytopeniaCKD-3aanemia of CKDlumbar disc bulgingold lumbar compression fx - L1 and G5mugabohlnsDitqcgdn History Surgery Date(Month/Year) appendectomy 1968 L eye surgery tonsillectomy and adenoidectomy 1978 colonoscopy at age 64 MOHS procedure x2 - R foot - 07/2022R thigh skin [id number] L hip replacement 02/20/2023one marrow bx
[2025-04-01 10:36] LABS: Hematocrit 37.1 % (36.0-48.0); Hemoglobin 12.3 g/dL (12.0-16.0); Mean Corpuscular HGB Conc 33.2 g/dL (29.9-35.2); Mean Corpuscular Hemoglobin 30.4 pg (26.7-34.0); Mean Corpuscular Volume 91.6 fL (81.0-99.0); Platelet Count 101 10^3/uL (150-450); Red Blood Count 4.05 10^6/uL (4.20-5.40); White Blood Count 5.2 10^3/uL (4.0-11.0)
[2025-04-01 11:05] LABS: Atypical Lymphocytes % Manual 9.0 %; Atypical Lymphocytes Abs Man 0.46; Band Neutrophils Absolute 0.1 10^3/uL (0.0-0.3); Basophils Abs Manual 0.00 10^3/uL (0.00-0.10); Basophils Percent Manual 0.0 % (0.2-2.0); Eosinophils Absolute Manual 0.00 10^3/uL (0.00-0.70); Eosinophils Percent Manual 0.0 % (0.9-7.0); Lymphocytes Absolute Manual 1.71 10^3/uL (1.20-3.80); Lymphocytes Percent Manual 33.0 % (20.5-60.0); Monocytes Absolute Manual 1.19 10^3/uL (0.30-0.80); Monocytes Percent Manual 23.0 % (1.7-12.0); Segmented Neut Absolute Manual 1.71 10^3/uL (1.4-6.5); Segmented Neutrophils % Manual 33.0 (43.0-75.0)
[2025-04-01 11:14] LABS: Alanine Aminotransferase 23 U/L (14-59); Albumin Globulin Ratio 1.5; Albumin Level 4.7 g/dL (3.4-5.0); Alkaline Phosphatase 49 U/L (46-116); Anion Gap 13.2; Aspartate Amino Transferase 32 U/L (15-37); Blood Urea Nitrogen 16.0 mg/dL (7.0-18.0); Calcium 9.6 mg/dL (8.5-10.1); Carbon Dioxide 29.5 mmol/L (21.0-32.0); Chloride 102 mmol/L (98-107); Cholesterol 162 mg/dL (<=200); Estimated GFR (African America 59 (>=60 mL/min/1.73m^2); Estimated GFR (Non-African Ame 49 (>=60 mL/min/1.73m^2); Free T3 1.81 pg/mL (2.18-3.98); Globulin 3.2 g/dL; Glucose 77 mg/dL (74-106); HDL Cholesterol 60 mg/dL (40-60); Potassium 3.7 mmol/L (3.5-5.1); Sodium 141 mmol/L (136-145); Thyroid Stimulating Hormone 8.884 uIU/mL (0.358-3.740); Total Protein 7.9 g/dL (6.4-8.2); Triglycerides 86 mg/dL (<=150); VLDL CHOLESTEROL 17.2 mg/dL
[2025-04-01 13:20] LABS: Microalbum Creatinine Ratio Ur 13.5 mg/g (0.0-29.9)
[2025-04-01 14:34] LABS: Folate 26.10 ng/mL (8.60-58.90)
[2025-04-02 04:08] LABS: Vitamin B12 983 pg/mL (232-1245)
== END 2025-04-01 10:00 | disposition home or self-care (01) ==
LOC: LAB 10:07
PROVIDERS: PCP Family Medicine; Visit Provider Family Medicine
DX: E03.9 Hypothyroidism, unspecified (principal); R53.82 Chronic fatigue, unspecified; E78.00 Pure hypercholesterolemia, unspecified; N18.31 Chronic kidney disease, stage 3a
CPT/HCPCS: 36415; 80053; 80061; 82043; 82570; 82607; 82746; 84439; 84443; 84481; 85007; 85027